=== PATIENT | female | born 1960 | race Caucasian/White ===

== ENCOUNTER 2020-09-13 19:12 | Emergency (ER) | payer SELFPAY ==
[~2020-09-13 19:12] MED LIST: NAPROXEN250 MG PO; NORCO 5-325 TA1 EACH PO
[2020-09-13 20:09] LABS: RED BLOOD COUNT 4.63 M/UL (4.00-5.10); WHITE BLOOD COUNT 10.3 K/UL (4.5-11.0)
[2020-09-13 20:35] LABS: BUN/CREATININE RATIO 15 (0-10)
== END 2020-09-13 22:50 | disposition home or self-care (01) ==
LOC: ER1 19:12
PROVIDERS: Physician Assistant
DX: T63.461A Toxic effect of venom of wasps, accidental (unintentional), initial encounter (principal); R07.9 Chest pain, unspecified; Z90.710 Acquired absence of both cervix and uterus; Z90.89 Acquired absence of other organs
CPT/HCPCS: 71045; 80053; 82550; 82553; 83874; 84484; 85025; 93005; 96372; 99285; J2930

== ENCOUNTER 2021-02-09 17:42 | Emergency (ER) | payer OTHER ==
[2021-02-09 19:32] LABS: HEMOGLOBIN 14.8 gm/dl (12.3-15.3); RED BLOOD COUNT 4.96 M/UL (4.00-5.10); WHITE BLOOD COUNT 6.8 K/UL (4.5-11.0)
[2021-02-09 19:36] LABS: BUN/CREATININE RATIO 12 (0-10)
== END 2021-02-10 03:25 | disposition home or self-care (01) ==
LOC: ER1 17:42
PROVIDERS: Physician Assistant Medical
DX: U07.1 COVID-19 (principal)
CPT/HCPCS: 71045; 80053; 85025; 85379; 85652; 86140; 94760; 96374; 99285; J1100; Q9967; U0002

== ENCOUNTER 2021-02-10 16:07 | Emergency (ER) | payer OTHER ==
[~2021-02-10] VITALS: Ht 160 cm; Wt 99.8 kg
== END 2021-02-10 22:12 | disposition left against medical advice (07) ==
LOC: ER1 16:07
DX: R05.9 Cough, unspecified (principal); R11.2 Nausea with vomiting, unspecified; R00.0 Tachycardia, unspecified
CPT/HCPCS: 99283

== ENCOUNTER 2021-02-13 15:50 | Inpatient (IN) | payer OTHER ==
[~2021-02-13] VITALS: Ht 160 cm; Wt 87.6 kg
[2021-02-13 16:39] LABS: HEMOGLOBIN 13.8 gm/dl (12.3-15.3); RED BLOOD COUNT 4.65 M/UL (4.00-5.10); WHITE BLOOD COUNT 8.9 K/UL (4.5-11.0)
[2021-02-13 17:08] LABS: BUN/CREATININE RATIO 15 (0-10)
[2021-02-14 06:58] LABS: HEMOGLOBIN 12.7 gm/dl (12.3-15.3); RED BLOOD COUNT 4.46 M/UL (4.00-5.10); WHITE BLOOD COUNT 8.9 K/UL (4.5-11.0)
[2021-02-14 07:35] LABS: BUN/CREATININE RATIO 9 (0-10)
[2021-02-14 21:49] LABS: ACINETOBACTER BAUMANNII Not Detected (Negative); CANDIDA ALBICANS Not Detected (Negative); CANDIDA KRUSEI Not Detected (Negative); CANDIDA TROPICALIS Not Detected (Negative); ENTEROCOCCUS Not Detected (Negative); ESCHERICHIA COLI Not Detected (Negative); HAEMOPHILUS INFLUENZAE Not Detected (Negative); KLEBSIELLA OXYTOCA Not Detected (Negative); KLEBSIELLA PNEUMONIAE Not Detected (Negative); KPC-CARBAPENEM-RESISTANCE GENE Not Detected (Negative); PROTEUS Not Detected (Negative); PSEUDOMONAS AERUGINOSA Not Detected (Negative); SERRATIA MARCESANS Not Detected (Negative); STAPHYLOCOCCUS AUREUS Not Detected (Negative); STREP AGALACTIAE (GROUP B) Not Detected (Negative); STREP PYOGENES (GROUP A) Not Detected (Negative); STREPTOCOCCUS Not Detected (Negative); mecA (METHICILLIN RESIST GENE Not Detected (Negative); vanA/B (VANCOMYCIN RESIST GENE Not Detected (Negative)
[2021-02-14 23:12] LABS: STAPHYLOCOCCUS DETECTED (Negative)
[2021-02-16 07:52] LABS: BUN/CREATININE RATIO 12 (0-10)
[2021-02-17 08:22] LABS: BUN/CREATININE RATIO 15 (0-10)
[2021-02-17 09:03] LABS: HEMOGLOBIN 12.7 gm/dl (12.3-15.3); RED BLOOD COUNT 4.41 M/UL (4.00-5.10); WHITE BLOOD COUNT 12.7 K/UL (4.5-11.0)
[2021-02-18 06:37] LABS: HEMOGLOBIN 12.4 gm/dl (12.3-15.3); RED BLOOD COUNT 4.42 M/UL (4.00-5.10); WHITE BLOOD COUNT 13.1 K/UL (4.5-11.0)
[2021-02-18 07:13] LABS: BUN/CREATININE RATIO 21 (0-10)
[2021-02-19 07:42] LABS: HEMOGLOBIN 12.6 gm/dl (12.3-15.3); RED BLOOD COUNT 4.38 M/UL (4.00-5.10)
[2021-02-19 08:24] LABS: BUN/CREATININE RATIO 21 (0-10)
[2021-02-20 07:09] LABS: RED BLOOD COUNT 4.52 M/UL (4.00-5.10); WHITE BLOOD COUNT 16.3 K/UL (4.5-11.0)
[2021-02-20 07:23] LABS: BUN/CREATININE RATIO 18 (0-10)
[2021-02-21 09:49] LABS: HEMOGLOBIN 13.5 gm/dl (12.3-15.3); RED BLOOD COUNT 4.59 M/UL (4.00-5.10); WHITE BLOOD COUNT 14.9 K/UL (4.5-11.0)
[2021-02-21 10:01] LABS: BUN/CREATININE RATIO 20 (0-10)
[2021-02-22 05:11] LABS: RED BLOOD COUNT 4.14 M/UL (4.00-5.10); WHITE BLOOD COUNT 16.5 K/UL (4.5-11.0)
[2021-02-22 05:17] LABS: BUN/CREATININE RATIO 21 (0-10)
[2021-02-22] MEDS ORDERED: SYMBICORT 80-10.2 GM INH (15:10)
[2021-02-22] MEDS ORDERED: PROVENTIL HFA6.7 GM INH (15:10)
[2021-02-22] MEDS ORDERED: CEFUROXIME500 MG PO (15:10)
[2021-02-22] MEDS ORDERED: DEXAMETHASONE6 MG PO (15:10)
== END 2021-02-22 15:13 | disposition home or self-care (01) | DRG 177 ==
LOC: ER1 15:50 → M/S 20:41 → PROG CARE 20:41 → CDU 20:41 → PROG CARE 02-14 01:30 → M/S 02-14 11:24
PROVIDERS: Emergency Medicine; Internal Medicine; ADMIT Internal Medicine
PROC: 8E0ZXY6 Isolation (ICD-10-PCS; principal; 2021-02-13)
PROC: 3E0333Z Introduction of Anti-inflammatory into Peripheral Vein, Percutaneous Approach (ICD-10-PCS; 2021-02-13)
PROC: 5A0955A Assistance with Respiratory Ventilation, Greater than 96 Consecutive Hours, High Flow/Velocity Cannula (ICD-10-PCS; 2021-02-13)
PROC: XW033E5 Introduction of Remdesivir Anti-infective into Peripheral Vein, Percutaneous Approach, New Technology Group 5 (ICD-10-PCS; 2021-02-14)
PROC: B24BZZZ Ultrasonography of Heart with Aorta (ICD-10-PCS; 2021-02-21)
DX: U07.1 COVID-19 (principal); J12.82 Pneumonia due to coronavirus disease 2019; J96.01 Acute respiratory failure with hypoxia; J15.9 Unspecified bacterial pneumonia; N39.0 Urinary tract infection, site not specified; E87.6 Hypokalemia; E88.09 Other disorders of plasma-protein metabolism, not elsewhere classified; E83.51 Hypocalcemia; R53.1 Weakness; E66.9 Obesity, unspecified; E87.70 Fluid overload, unspecified; Z90.49 Acquired absence of other specified parts of digestive tract; Z90.710 Acquired absence of both cervix and uterus; Z88.5 Allergy status to narcotic agent; Z79.899 Other long term (current) drug therapy; Z79.84 Long term (current) use of oral hypoglycemic drugs; Z68.34 Body mass index [BMI] 34.0-34.9, adult
CPT/HCPCS: 36415; 36600; 71045; 80048; 80053; 81001; 82550; 82553; 82728; 82803; 83605; 83735; 83880; 84484; 85025; 85027; 85610; 85730; 86140; 87040; 87077; 87086; 87150; 87186; 93005; 94640; 94664; 94760; 96374; 96375; 97110-GP-CQ; 97116; 97161; 99285; J0248; J0456; J0692; J0696; J1100; J1650; J3370; J7030; J7070

== ENCOUNTER → 2021-05-08 | Outpatient (CLI) | payer MEDICAID ==
[~2021-05-08] MED LIST changes: +CEFUROXIME500 MG PO; +DEXAMETHASONE6 MG PO; +PROVENTIL HFA6.7 GM INH; +SYMBICORT 80-10.2 GM INH
[2021-05-08 09:48] LABS: HEMOGLOBIN 13.8 gm/dl (12.3-15.3); RED BLOOD COUNT 4.58 M/UL (4.00-5.10)
== END ==
LOC: RAD 09:11
PROVIDERS: Internal Medicine Pulmonary Disease
DX: R09.02 Hypoxemia (principal)
CPT/HCPCS: 36415; 71046; 85025; 85379

== ENCOUNTER → 2021-05-13 | Outpatient (CLI) | payer MEDICAID | LOC: HEART 5 15:16 | DX: R09.02 Hypoxemia (principal); R94.2 Abnormal results of pulmonary function studies | CPT/HCPCS: 94060; 94729 ==

== ENCOUNTER → 2021-08-22 | Outpatient (CLI) | payer SELFPAY | LOC: EXRD 13:08 | DX: R00.0 Tachycardia, unspecified (principal); R06.89 Other abnormalities of breathing | CPT/HCPCS: 71046 ==